=== PATIENT | female | born 1980 | race Caucasian/White ===

== ENCOUNTER 2018-08-01 21:34 | Emergency (ER) | payer SELFPAY ==
[~2018-08-01] VITALS: Ht 170.2 cm; Wt 62.6 kg
[2018-08-01] MEDS ORDERED: LIDOCAINE 1% INJ 20 ML 20 ML VIAL ONE (23:26)
[2018-08-01] MEDS ORDERED: LIDOCAINE 1% INJ 20 ML 20 ML VIAL INJ ONE (23:30)
--- NOTE | 2018-08-01 23:34 | ED Head Injury ---
General Chief Complaint: Laceration Stated Complaint: EYE BROW LAC Nursing Triage Note: HIT HEAD ON LOCKER CORNER. NO LOC Source: patient Exam Limitations: no limitations History of Present Illness Date Seen by Provider: Aug 01, 2018 Time Seen by Provider: 23:25 Initial Comments The patient presents to ER with her significant other and chief complaint she's having some head pain and a left eyebrow laceration after standing up quickly while in her locker and smacking her head against the locker itself. 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 She's taken Tylenol but because of her warfarin she does not use NSAIDs and does not have any else for the pain and is still quite throbbing on her left side of her face. She's not with any large hematoma. It took her a while to get the bleeding to stop. She's not knocked out nor having any nausea vomiting, flashes of light or visual disturbances. She wears contact lenses. Allergies and Home Medications Allergies Coded Allergies: codeine (Verified Allergy, Unknown, 08/01/18) Patient Home Medication List Home Medication List Reviewed: Yes Review of Systems Review of Systems Constitutional: No chills, No diaphoresis Eyes: Denies Blindness, Denies Blurred Vision, Denies Drainage Ears, Nose, Mouth, Throat: denies ear pain, denies ear discharge Respiratory: No cough, No dyspnea on exertion Cardiovascular: No chest pain, No palpitations Gastrointestinal: No abdominal pain, No nausea Past [id number] Hx Patient Social History Alcohol Use: Denies Use Recreational Drug Use: No Smoking Status: Current Everyday Smoker Type Used: Cigarettes (1 pd) Recent Foreign Travel: No Contact w/Someone Who Travel: No Recent Infectious Disease Expo: No Physical Abuse: No Sexual Abuse: No Past Medical History Nursing Suicide Risk Score: 0 Physical Exam Vital Signs Vital Signs - First Documented 08/01/18 23:16 Temp 98.9 Pulse 62 Resp 12 B/P (MAP) 123/81 (95) Pulse Ox 100 Capillary Refill : Less Than 3 Seconds Height, Weight, BMI Height: 5'7.00" Weight: 138lbs. oz. 62.157409tx; BMI Method:Stated General Appearance: WD/WN, no apparent distress HEENT: PERRL/EOMI, pharynx normal, other (negative for Mullins sign, raccoon eyes. There is a small 1 cm linear laceration/contusion medial to the left eyebrow.) Cardiovascular: normal peripheral pulses, regular rate, rhythm Respiratory: no respiratory distress, no accessory muscle use Psychiatric: alert, oriented x 3 Crainal Nerves: normal hearing, normal speech, PERRL, other (Glascow coma scale 15 out of 15 points) Progress/Results/Core Measures Results/Orders My Orders Orders - CAROLINE YEBOAH Lidocaine 1% Inj 20 Ml (Xylocaine 1% Inj (08/01/18 23:30) Hydrocodone/Apap 5/325 Tablet (Lortab 5 (08/01/18 23:30) Ct Head/Cervical Spine Wo (08/01/18 23:29) Lidocaine 1% Inj 20 Ml (Xylocaine 1% Inj (08/01/18 23:26) Medications Given in ED Current Medications Medications Dose Ordered Sig/Niki Route Start Time Stop Time Status Last Admin Dose Admin Acetaminophen/ Hydrocodone Bitart 1 tab ONCE ONCE PO 08/01/18 23:30 08/01/18 23:31 DC 08/02/18 00:15 1 TAB Vital Signs/I&O 08/01/18 23:16 Temp 98.9 Pulse 62 Resp 12 B/P (MAP) 123/81 (95) Pulse Ox 100 Blood Pressure Mean: 95 Progress Progress Note : Time: 23:33 Progress Note We have discussed the risks, benefits and alternatives to doing imaging of her head and neck given her use of anticoagulants and she has consented to do a CT of her head and neck. I do not think a maxillofacial is very helpful as she is not having any deformity or significant tenderness. She's had Tylenol so we'll give her a hydrocodone to help with her headache tonight 1. We'll then numb up her wound and put a stitch across it. Diagnostic Imaging Diagonstic Imaging: CT Plain Films/CT/US/NM/MRI: c-spine, head Comments CT head without acute intracranial pathology. CT cervical spine without acute bony pathology or significant degenerative degenerative changes. Reviewed: Reviewed by Me Departure Impression Primary Impression: Fall Qualified Codes: W19.XXXA - Unspecified fall, initial encounter Additional Impression: Facial laceration Qualified Codes: S01.81XA - Laceration without foreign body of other part of head, initial encounter Disposition: 01 HOME, SELF-CARE Condition: Improved Departure-Patient Inst. Decision time for Depature: 00:38 Patient Instructions: Laceration Repair With Stitches (DC) Add. Discharge Instructions: Clean with soap and water as needed. Return in 7-10 days to have the stitches removed. Ice pack directly to the site for pain or Tylenol 1000 g every 8 hours. All discharge instructions reviewed with patient and/or family. Voiced understanding. CAROLINE YEBOAH Aug 01, 2018 23:34
[2018-08-02] MEDS: HYDROcodone/APAP 5 MG/325 MG (LORTAB) TAB PO ONE (00:15)
[2018-08-02 00:53] VITALS: BP 143/87
--- NOTE | 2018-08-02 06:49 | Diagnostic Imaging Report ---
PROCEDURE: CT head and CT cervical spine without contrast. TECHNIQUE: Multiple contiguous axial images were obtained through the brain and cervical spine without the use of intravenous contrast. Sagittal and coronal reformations through the cervical spine were then performed. INDICATION: Head and neck pain after trauma. FINDINGS: The ventricles and sulci are within normal limits. There is no hydrocephalus or cerebral edema. There is no midline shift or mass effect. There is no intracranial mass, hemorrhage or extra-axial fluid collection. The visualized paranasal sinuses and mastoid air cells are clear. No fractures are identified. CERVICAL SPINE: Alignment is normal. There is no fracture or traumatic subluxation. The prevertebral soft tissues are within normal limits. The odontoid is intact and the lateral masses are well aligned. There are no soft tissue abnormalities. IMPRESSION: 1. No acute intracranial process. 2. No focal abnormality in the cervical spine. Dictated by: Dictated on workstation # [id number]
== END 2018-08-02 00:53 | disposition home or self-care (01) ==
LOC: ER 21:36
DX: S01.112A Laceration without foreign body of left eyelid and periocular area, initial encounter (principal); F17.210 Nicotine dependence, cigarettes, uncomplicated; Z88.5 Allergy status to narcotic agent; Z86.718 Personal history of other venous thrombosis and embolism; Z79.01 Long term (current) use of anticoagulants; W22.09XA Striking against other stationary object, initial encounter
CPT/HCPCS: 12011; 70450; 72125